=== PATIENT | female | born 1985 ===

== ENCOUNTER 2019-06-25 19:42 | Emergency (ER) | payer SELFPAY ==
[2019-06-25 20:23] VITALS: BP 151/95
--- NOTE | 2019-06-25 20:53 | Event Note ---
ED Screening Note Date of service: 06/25/19 Time: 20:49 ED Screening Note: 34 y/o female comes in for chest heaviness and leg pain and leg heaviness. Reports that she has travel from [place]. Pain with palpation. Has bruising. Hx/o HTN on no meds. No control Hysterectomy. Kidney surgery This initial assessment/diagnostic orders/clinical plan/treatment(s) is/are subject to change based on patients health status, clinical progression and re- assessment by fellow clinical providers in the ED. Further treatment and workup at subsequent clinical providers discretion. Patient/guardian urged not to elope from the ED as their condition may be serious if not clinically assessed and man aged. Initial orders include:
[2019-06-25 21:14] LABS: Basophils # (Auto) 0.1 K/mm3 (0.0-0.1); Eosinophils # (Auto) 0.3 K/mm3 (0.0-0.4); Eosinophils % (Auto) 4.1 % (0.0-4.3); Hematocrit 37.8 % (30.3-42.9); Lymphocytes # (Auto) 2.2 K/mm3 (1.2-5.4); Lymphocytes % (Auto) 30.6 % (13.4-35.0); Mean Corpuscular HGB Conc 34 % (30-34); Mean Corpuscular Volume 88 fl (79-97); Monocytes # (Auto) 0.6 K/mm3 (0.0-0.8); Monocytes % (Auto) 7.7 % (0.0-7.3); Platelet Count 250 K/mm3 (140-440); Red Blood Count 4.28 M/mm3 (3.65-5.03)
[2019-06-25 21:25] LABS: INR 0.92 (0.87-1.13); Partial Thromboplastin Time 25.2 Sec. (24.2-36.6)
[2019-06-25 21:28] LABS: Alanine Aminotransferase 12 units/L (7-56); Albumin 4.3 g/dL (3.9-5); BUN/Creatinine Ratio 21; Blood Urea Nitrogen 15 mg/dL (7-17); Calcium 9.1 mg/dL (8.4-10.2); Hemolysis Index 13
--- NOTE | 2019-06-25 22:04 | XRay Report ---
CHEST 2 VIEWS INDICATION: chest heaviness. COMPARISON: None. FINDINGS: Support devices: None. Heart: Within normal limits. Lungs/Pleura: No acute air space or interstitial disease. No significant pleural effusion. IMPRESSION: No acute findings. Signer Name: Srinivasan Monet MD Signed: 06/25/2019 10:00 PM Workstation Name: [email or web address]
== END 2019-06-25 23:00 ==
LOC: ED 19:42
DX: R06.00 Dyspnea, unspecified (principal); Z53.21 Procedure and treatment not carried out due to patient leaving prior to being seen by health care provider
CPT/HCPCS: 36415; 71046; 80053; 85025; 85379; 85610; 85730; 93005; 93010